=== PATIENT | male | born 1985 | race Caucasian/White ===

== ENCOUNTER 2020-06-29 08:40 | Emergency (ER) | payer OTHER ==
[~2020-06-29] VITALS: Ht 167.6 cm; Wt 68.0 kg
[2020-06-29] MEDS ORDERED: HYDROCODONE/ACETAMINOPHEN 5/325MG TABLET PO ONE (09:45)
[2020-06-29] MEDS ORDERED: IBUP-2029 MT (10:27)
[2020-06-29] MEDS ORDERED: AMOX1TAB15 MT (10:27)
[2020-06-29 11:00] VITALS: BP 111/74
== END 2020-06-29 11:01 ==
LOC: ER 09:24
DX: S02.2XXA Fracture of nasal bones, initial encounter for closed fracture (principal); W22.8XXA Striking against or struck by other objects, initial encounter; Y93.89 Activity, other specified; Y92.89 Other specified places as the place of occurrence of the external cause; Y99.8 Other external cause status
CPT/HCPCS: 70486; 99285